=== PATIENT | female | born 1980 ===

== ENCOUNTER 2020-02-19 16:57 | Emergency (ER) | payer OTHER ==
[~2020-02-19] VITALS: Ht 160 cm; Wt 52.2 kg
[~2020-02-19 16:57] MED LIST: FEOSOL1 TAB PO; MACROBID 100 M100 MG PO; NAPR500T14 PO; OXYC1TAB9 PO; PEPCID40 MG PO; PHENERGAN25 MG PO; PRENATABS FA TA1 TAB PO; PYRIDIUM DS200 MG PO
[2020-02-19] MEDS ORDERED: CLONAZEPAM0.5 MG (17:33)
[2020-02-19] MEDS ORDERED: TRAZODONE HCL100 MG (17:33)
[2020-02-19] MEDS ORDERED: RESTORIL30 M1 (17:34)
== END 2020-02-19 20:35 | disposition home or self-care (01) ==
LOC: ER 16:57
DX: S00.03XA Contusion of scalp, initial encounter (principal); W18.09XA Striking against other object with subsequent fall, initial encounter; Y93.89 Activity, other specified; Y92.098 Other place in other non-institutional residence as the place of occurrence of the external cause; Y99.8 Other external cause status